=== PATIENT | female | born 1950 | race Caucasian/White ===

== ENCOUNTER 2022-01-18 15:51 | Outpatient (CLI) | payer MEDICARE | END 2022-01-18 15:52 | disposition home or self-care (01) | LOC: CSHLAB 15:51 | PROVIDERS: ATTEND Obstetrics & Gynecology | DX: Z01.812 Encounter for preprocedural laboratory examination (principal); Z20.822 Contact with and (suspected) exposure to COVID-19; N84.0 Polyp of corpus uteri; Z53.9 Procedure and treatment not carried out, unspecified reason | CPT/HCPCS: 85027; 86850; 86900; 86901; 87811 ==

== ENCOUNTER 2022-01-23 06:04 | Day surgery (SDC) | payer MEDICARE ==
[2022-01-18 17:09] LABS: Hemoglobin 12.6 g/dL (12.0-15.5); Mean Corpuscular HGB CONC 33.5 g/dL (32.0-36.0); Mean Corpuscular Hemoglobin 30.3 pg (27.0-33.0); Mean Corpuscular Volume 90.4 fl (81.6-98.3); Mean Platelet Volume 10.2 fl (7.4-10.4); Platelet Count 235 10x3/uL (150-450); RBC Distribution Width 12.7 % (11.5-14.5); Red Blood Cell (RBC) Count 4.16 10x6/uL (3.90-5.03); White Blood Cell (WBC) Count 5.4 10x3/uL (3.5-10.5)
[2022-01-21 11:47] VITALS: BMI 26.6
[2022-01-23] MEDS ORDERED: Lidocaine 1% MPF 2 ML VIAL ONE (06:39)
[2022-01-23] MEDS ORDERED: Fentanyl 100 MCG/2 ML VIAL ONE (08:43)
[2022-01-23] MEDS ORDERED: PROPOFOL 20 ML ONE (08:43)
[2022-01-23] MEDS ORDERED: CEFAZOLIN 2 GM VIAL ONE (08:44)
[2022-01-23] MEDS ORDERED: Lidocaine 1% PF 5 ML VIAL ONE (08:56)
[2022-01-23] MEDS ORDERED: Dexamethasone 4 mg/ml Vial ONE (09:01)
[2022-01-23] MEDS ORDERED: Ondansetron PF 4 MG/2 ML Vial ONE (09:01)
[2022-01-23] MEDS ORDERED: ePHEDrine Sulfate 50 MG/10 ML VIAL ONE (09:06)
== END 2022-01-23 10:15 | disposition home or self-care (01) ==
LOC: CSHSDC 06:04
PROVIDERS: ATTEND Obstetrics & Gynecology
PROC: 0UB98ZZ Excision of Uterus, Via Natural or Artificial Opening Endoscopic (ICD-10-PCS; principal; 2022-01-23)
DX: N84.0 Polyp of corpus uteri (principal); Z79.899 Other long term (current) drug therapy; Z20.822 Contact with and (suspected) exposure to COVID-19; Z85.3 Personal history of malignant neoplasm of breast; Z88.8 Allergy status to other drugs, medicaments and biological substances
CPT/HCPCS: 36415; 85027; 86850; 86900; 86901; 87811; 88305; J0690; J1100; J2405; J2704; J3010

== ENCOUNTER 2025-02-28 13:48 | Outpatient (CLI) | payer MEDICARE | END 2025-02-28 13:49 | disposition home or self-care (01) | LOC: CSHMAMMO 13:48 | PROVIDERS: ATTEND Nurse Practitioner Family | DX: N64.89 Other specified disorders of breast (principal); N63.21 Unspecified lump in the left breast, upper outer quadrant | CPT/HCPCS: 76642; 77065; G0279 ==

== ENCOUNTER → 2025-03-10 | Day surgery (SDC) | payer MEDICARE | LOC: CSHULT 12:06 | PROVIDERS: ATTEND Nurse Practitioner Family | PROC: 0H95XZX Drainage of Chest Skin, External Approach, Diagnostic (ICD-10-PCS; principal; 2025-03-10) | DX: C50.412 Malignant neoplasm of upper-outer quadrant of left female breast (principal); R92.8 Other abnormal and inconclusive findings on diagnostic imaging of breast | CPT/HCPCS: 19083; A4648; 88305; 88341; 88342 ==

== ENCOUNTER 2025-04-06 10:31 | Outpatient (CLI) | payer MEDICARE | END 2025-04-06 10:32 | disposition home or self-care (01) | LOC: CSHMAMMO 10:31 | PROVIDERS: ATTEND Specialist | DX: C50.919 Malignant neoplasm of unspecified site of unspecified female breast (principal) | CPT/HCPCS: 96372; A9697 ==

== ENCOUNTER 2025-04-06 11:03 | Outpatient (CLI) | payer MEDICARE ==
[2025-04-06 12:25] LABS: #Basophils 0.03 10x3/uL (0.0-0.2); #Eosinophils 0.13 10x3/uL (0.0-0.5); #Monocytes 0.34 10x3/uL (0.0-1.1); #Neutrophils 2.97 10x3/uL (1.5-8.4); %Basophils 0.6 % (0.0-2.0); %Eosinophils 2.4 % (0.0-6.0); %Lymphocytes 35.3 % (18.0-47.0); %Monocytes 6.3 % (0.0-10.0); %Neutrophils 55.2 % (40.0-75.0); Hematocrit 37.8 % (34.9-44.5); Hemoglobin 12.6 g/dL (12.0-15.5); Mean Corpuscular Hemoglobin 29.7 pg (27.0-33.0); Mean Corpuscular Volume 89.2 fL (81.6-98.3); Platelet Count 214 10x3/uL (150-450); Red Blood Cell (RBC) Count 4.24 10x6/uL (3.90-5.03); White Blood Cell (WBC) Count 5.38 10x3/uL (3.5-10.5)
[2025-04-06 13:17] LABS: Anion Gap 13 mmol/L (10-20); BUN (Urea Nitrogen) 14 mg/dL (9.8-20.1); Calc. Creatinine Clearance 0 mL/min (70-130); Calcium 9.0 mg/dL (7.8-10.44); Carbon Dioxide 29 mmol/L (23-31); Chloride 104 mmol/L (98-107); Glucose 87 mg/dL (83-110); Potassium 4.2 mmol/L (3.5-5.1); Sodium 142 mmol/L (136-145)
== END 2025-04-06 11:04 | disposition home or self-care (01) ==
LOC: CSHLAB 11:03
PROVIDERS: ATTEND Specialist
DX: Z01.818 Encounter for other preprocedural examination (principal); C50.912 Malignant neoplasm of unspecified site of left female breast; I51.7 Cardiomegaly
CPT/HCPCS: 71046; 80048; 85025; 93005; 93010

== ENCOUNTER 2025-04-14 09:19 | Day surgery (SDC) | payer MEDICARE ==
[2025-04-06 11:50] VITALS: BMI 26.6
[2025-04-14] MEDS ORDERED: Ketorolac Tromethamine 30 MG (1 mL) VIAL ONE (09:32)
[2025-04-14] MEDS ORDERED: Acetaminophen 500 MG TAB ONE (09:33)
[2025-04-14] MEDS ORDERED: PROPOFOL 20 ML ONE (10:45)
[2025-04-14] MEDS ORDERED: Lidocaine 1% PF 5 ML VIAL ONE (10:46)
[2025-04-14] MEDS ORDERED: SUGAMMADEX SODIUM 200 MG/2 ML VIAL ONE (10:59)
[2025-04-14] MEDS ORDERED: CEFAZOLIN 2 GM VIAL ONE (11:13)
[2025-04-14] MEDS ORDERED: Bupivacaine/Epinephrine 0.25% 30 ML VIAL ONE (11:13)
[2025-04-14] MEDS ORDERED: HYDROcodone/Acetaminophen 5/325 mg Tablet ONE (14:00)
== END 2025-04-14 14:50 | disposition home or self-care (01) ==
LOC: CSHSDC 09:19
PROVIDERS: ATTEND Specialist
PROC: 0HBU0ZZ Excision of Left Breast, Open Approach (ICD-10-PCS; principal; 2025-04-14)
DX: C50.412 Malignant neoplasm of upper-outer quadrant of left female breast (principal); Z88.8 Allergy status to other drugs, medicaments and biological substances; Z90.49 Acquired absence of other specified parts of digestive tract
CPT/HCPCS: 19301; 38525; 38900; 76098; 82962; C1713; J1885; J2704; 36416; 88307; 88341; 88342